=== PATIENT | female | born 1955 | race Caucasian/White ===

== ENCOUNTER 2022-02-06 09:57 | Outpatient (CLI) | payer OTHER ==
[2022-02-06] MEDS ORDERED: Iopamidol 370 76% 100 ML VIAL ONE (10:25)
== END 2022-02-06 09:58 | disposition home or self-care (01) ==
LOC: CT 09:57 → EDSTATUS 10:00
PROVIDERS: ATTEND Internal Medicine Gastroenterology
DX: R10.13 Epigastric pain (principal); K52.9 Noninfective gastroenteritis and colitis, unspecified; R14.0 Abdominal distension (gaseous); R10.32 Left lower quadrant pain; R15.9 Full incontinence of feces
CPT/HCPCS: 74177; 82565

== ENCOUNTER 2022-06-15 08:00 | Outpatient (CLI) | payer OTHER, MEDICAID | END 2022-06-15 08:01 | disposition home or self-care (01) | LOC: NM 08:00 | PROVIDERS: ATTEND Internal Medicine Gastroenterology | DX: R10.13 Epigastric pain (principal); R14.0 Abdominal distension (gaseous); R15.9 Full incontinence of feces | CPT/HCPCS: 78264; A9541 ==

== ENCOUNTER 2024-03-07 17:09 | Observation (INO) | payer OTHER ==
[2024-03-07 18:21] LABS: #Basophils Less than 0.03 10x3/uL (0.0-0.2); %Basophils 0.2 % (0.0-1.0); %Eosinophils 2.3 % (0.0-10.0); %Lymphocytes 53.2 % (21.0-51.0); %Monocytes 14.3 % (0.0-10.0); %Neutrophils 29.8 % (42.0-75.0); Hematocrit 36.1 % (36.0-47.0); Hemoglobin 12.3 g/dL (12.0-16.0); Mean Corpuscular HGB CONC 34.1 g/dL (32.0-36.0); Mean Corpuscular Hemoglobin 30.4 pg (27.0-31.0); Mean Corpuscular Volume 89.1 fL (78.0-98.0); Mean Platelet Volume 11.2 fL (7.4-10.4); Platelet Count 194 10x3/uL (130-400); RBC Distribution Width 13.2 % (11.5-14.5); Red Blood Cell (RBC) Count 4.05 mill/uL (4.20-5.40)
[2024-03-07 18:36] LABS: Acetaminophen Less than 10 mcg/mL (10.0-30.0); Alcohol Less than 10.0 mg/dL (Less than 10); Magnesium 1.9 mg/dL (1.6-2.6); Salicylate Less than 8.0 mg/dL (15.0-30.0)
[2024-03-07 18:43] LABS: ALT (SGPT) 6 U/L (8-55); AST (SGOT) 19 U/L (5-34); Albumin 3.6 g/dL (3.4-4.8); Alkaline Phosphatase 66 U/L (40-110); Anion Gap 12 mmol/L (10-20); BUN (Urea Nitrogen) 16 mg/dL (9.8-20.1); Bilirubin, Total 0.3 mg/dL (0.2-1.2); Calc. Creatinine Clearance 0 mL/min (70-130); Calcium 9.3 mg/dL (7.8-10.44); Carbon Dioxide 25 mmol/L (23-31); Chloride 94 mmol/L (98-107); Estimated GFR 69; Globulin 2.8 g/dL (2.4-3.5); Glucose 106 mg/dL (80-115); Potassium 4.3 mmol/L (3.5-5.1); Protein, Total 6.4 g/dL (5.8-8.1); Sodium 127 mmol/L (136-145)
[2024-03-07] MEDS ORDERED: Acetaminophen 325 MG TAB PO PRN (19:52)
[2024-03-07] MEDS ORDERED: Ondansetron PF 4 MG/2 ML Vial IVP PRN (19:52)
[2024-03-07 21:30] VITALS: BMI 35.6
[2024-03-08 04:19] LABS: Amphetamine Not Detected (NotDetected); Barbiturates Screen Not Detected (NotDetected); Benzodiazepine Screen Not Detected (NotDetected); Cocaine Metabolite Screen Not Detected (NotDetected); Methadone Not Detected (NotDetected); Methamphetamine Not Detected (NotDetected); Opiate Screen Not Detected (NotDetected); Oxycodone Screen Not Detected (NotDetected); Phencyclidine (PCP) Not Detected (NotDetected); THC/Cannabinoid Screen Not Detected (NotDetected); Tricyclic Screen Not Detected (NotDetected)
[2024-03-08] MEDS ORDERED: Acetaminophen 325 MG TAB PO PRN (06:09)
[2024-03-08] MEDS ORDERED: traMADol HCl 50 MG TAB PO PRN (06:09)
[2024-03-08] MEDS ORDERED: Polyethylene Glycol 3350 17 GM Packet PO PRN (06:09)
[2024-03-08] MEDS ORDERED: Loratadine 10 MG TAB PO PRN (06:09)
[2024-03-08] MEDS ORDERED: Ipratropium/Albuterol 3 ML NEB NEB PRN (06:09)
[2024-03-08 06:12] LABS: #Basophils Less than 0.03 10x3/uL (0.0-0.2); %Basophils 0.3 % (0.0-1.0); %Eosinophils 3.3 % (0.0-10.0); %Lymphocytes 49.4 % (21.0-51.0); %Monocytes 16.4 % (0.0-10.0); %Neutrophils 30.3 % (42.0-75.0); Hematocrit 38.4 % (36.0-47.0); Mean Corpuscular HGB CONC 33.9 g/dL (32.0-36.0); Mean Corpuscular Hemoglobin 30.4 pg (27.0-31.0); Mean Corpuscular Volume 89.7 fL (78.0-98.0); Mean Platelet Volume 11.3 fL (7.4-10.4); Platelet Count 201 10x3/uL (130-400); RBC Distribution Width 13.4 % (11.5-14.5); Red Blood Cell (RBC) Count 4.28 mill/uL (4.20-5.40)
[2024-03-08 06:35] LABS: ALT (SGPT) 7 U/L (8-55); AST (SGOT) 20 U/L (5-34); Albumin 3.6 g/dL (3.4-4.8); Alkaline Phosphatase 68 U/L (40-110); Anion Gap 14 mmol/L (10-20); BUN (Urea Nitrogen) 16 mg/dL (9.8-20.1); Bilirubin, Total 0.4 mg/dL (0.2-1.2); Calc. Creatinine Clearance 94 mL/min (70-130); Calcium 9.3 mg/dL (7.8-10.44); Carbon Dioxide 25 mmol/L (23-31); Chloride 99 mmol/L (98-107); Estimated GFR 72; Globulin 3.1 g/dL (2.4-3.5); Glucose 92 mg/dL (80-115); Potassium 4.5 mmol/L (3.5-5.1); Protein, Total 6.7 g/dL (5.8-8.1); Sodium 133 mmol/L (136-145)
[2024-03-08] MEDS: Sucralfate 1 GM TAB PO SCH (08:28)
[2024-03-08] MEDS: Pantoprazole DR 40 MG TAB PO SCH (08:28)
[2024-03-08] MEDS: Meloxicam 15 MG TAB PO SCH (08:28)
[2024-03-08] MEDS: Isosorbide Mononitrate 30 MG ER.TAB PO SCH (08:28)
[2024-03-08] MEDS: DULoxetine 30 MG CAP PO SCH (08:28)
[2024-03-08] MEDS: Benztropine 1 MG TAB PO SCH (08:28)
[2024-03-08] MEDS: Lactulose 20 GM (30 mL) UDCUP PO SCH (08:29)
[2024-03-08] MEDS: Pregabalin 75 MG CAP PO SCH (08:29)
[2024-03-08] MEDS: Rivastigmine 9.5mg/24 Hour PATCH TOP SCH (08:29)
[2024-03-08] MEDS: Enoxaparin 40 MG (0.4 mL) SYRINGE SC SCH (08:29)
[2024-03-08] MEDS ORDERED: (Linaclotide [Linzess] 145 MCG Capsule) PO SCH (09:00)
[2024-03-08] MEDS ORDERED: Divalproex Sodium 250 MG ER.TAB PO SCH (09:00)
[2024-03-08 16:29] VITALS: BP 125/81; TEMP 97.8
[2024-03-08] MEDS ORDERED: Atorvastatin Calcium 20 MG TAB PO SCH (21:00)
[2024-03-08] MEDS ORDERED: Melatonin 3 MG TAB PO SCH (21:00)
[2024-03-08] MEDS ORDERED: QUEtiapine 300 MG TAB PO SCH (21:00)
[2024-03-09] MEDS ORDERED: Levothyroxine Sodium 75 MCG TAB PO SCH (06:00)
== END 2024-03-08 15:54 ==
LOC: ERS 17:09 → 2NO 19:56 → T4-A 22:03
PROVIDERS: ADMIT Emergency Medicine; ATTEND Emergency Medicine
DX: G93.41 Metabolic encephalopathy (principal); E87.1 Hypo-osmolality and hyponatremia; F25.0 Schizoaffective disorder, bipolar type; F03.90 Unspecified dementia, unspecified severity, without behavioral disturbance, psychotic disturbance, mood disturbance, and anxiety; E03.9 Hypothyroidism, unspecified; K59.00 Constipation, unspecified; R32 Unspecified urinary incontinence; F41.9 Anxiety disorder, unspecified; Z79.890 Hormone replacement therapy; Z79.899 Other long term (current) drug therapy
CPT/HCPCS: 70450; 80053; 80306; 80307; 82570; 83605; 83735; 83930; 83935; 84300; 85025; 96372; 99284; G0378 ×3; J1650; 36415; 84443